=== PATIENT | female | born 2000 | race Caucasian/White ===

== ENCOUNTER 2020-11-15 10:53 | Emergency (ER) | payer SELFPAY ==
[~2020-11-15] VITALS: Ht 157.5 cm; Wt 63.6 kg
[~2020-11-15 10:53] MED LIST: CEPHALEXIN500 M1 PO
[2020-11-15 11:02] VITALS: BP 122/69; TEMP 97.9
[2020-11-15] MEDS ORDERED: SPRINTEC 35 MCG1 TAB PO (12:10)
[2020-11-15 12:15] VITALS: PULSE 71
== END 2020-11-15 12:15 | disposition home or self-care (01) ==
LOC: COL.ER 10:53
DX: N92.1 Excessive and frequent menstruation with irregular cycle (principal)